=== PATIENT | female | born 1965 | race Caucasian/White ===

== ENCOUNTER 2021-08-15 10:46 | Outpatient (CLI) | payer OTHER | END 2021-08-15 10:51 | disposition home or self-care (01) | LOC: LAB 10:46 | DX: N95.2 Postmenopausal atrophic vaginitis (principal); R10.2 Pelvic and perineal pain; R93.89 Abnormal findings on diagnostic imaging of other specified body structures; Z01.419 Encounter for gynecological examination (general) (routine) without abnormal findings ==

== ENCOUNTER 2022-09-11 08:34 | Outpatient (CLI) | payer OTHER | END 2022-09-11 08:36 | disposition home or self-care (01) | LOC: MAMO-SONO 08:34 | DX: Z12.31 Encounter for screening mammogram for malignant neoplasm of breast (principal) ==

== ENCOUNTER 2022-09-11 09:49 | Outpatient (CLI) | payer OTHER | END 2022-09-11 09:53 | disposition home or self-care (01) | LOC: LAB 09:49 | DX: D64.9 Anemia, unspecified (principal); I10 Essential (primary) hypertension; E78.5 Hyperlipidemia, unspecified; N39.0 Urinary tract infection, site not specified; R19.5 Other fecal abnormalities; R80.9 Proteinuria, unspecified; E11.69 Type 2 diabetes mellitus with other specified complication; E03.8 Other specified hypothyroidism; E55.9 Vitamin D deficiency, unspecified ==

== ENCOUNTER 2025-05-18 10:31 | Outpatient (CLI) | payer OTHER | END 2025-05-18 10:34 | disposition home or self-care (01) | LOC: MRI 10:31 | DX: M25.551 Pain in right hip (principal); M25.562 Pain in left knee; N64.4 Mastodynia; Z12.31 Encounter for screening mammogram for malignant neoplasm of breast | CPT/HCPCS: 73721 ==

== ENCOUNTER 2025-05-20 11:17 | Outpatient (CLI) | payer OTHER ==
[2025-05-20 11:54] LABS: BASO % 1.1 % (0.1-1.2); EOS # 0.13 (0.04-0.54); EOS % 1.5 % (0.7-7.0); LYMPH # 3.00 (1.18-3.74); LYMPH % 35.5 % (19.3-53.1); MEAN PLATELET VOLUME 11.70 fl (9.4-12.4); MONO # 0.77 (0.24-0.82); MONO % 9.1 % (4.7-12.5); NEUT # 4.46 (1.56-6.13); NEUT % 52.7 % (34.0-71.1); RED CELL DISTRIBUTION WIDTH 13.5 % (11.6-14.4)
[2025-05-20 12:29] LABS: URINE APPEARANCE Clear; URINE BILIRRUBIN Negative (NEGATIVE); URINE BLOOD Negative; URINE COLOR Yellow; URINE GLUCOSE Negative (NEGATIVE); URINE KETONE Negative (NEGATIVE); URINE LEUKOCYTE Negative; URINE NITRATE Negative; URINE PROTEIN Negative (NEGATIVE); URINE UROBILINOGEN 0.2 E.U./dl
[2025-05-20 12:48] LABS: URINE BACTERIA 10.7 uL (0.0-1933); URINE EPITHELIAL CELLS 3.8 uL (0.0-38.8); URINE RBC 9.3 uL (0.0-20.8); URINE WBC 6.6 uL (0.0-23.2)
[2025-05-20 13:05] LABS: URINE CAST 0.00 uL (0.0-1.40)
[2025-05-20 13:14] LABS: ALT/SGPT 22.0 U/L (12-78); AST/SGOT 14.0 U/L (15-37); BILIRUBIN TOTAL 0.59 mg/dL (0.3-1.2); BUN CREA RATIO 24.0 (7.0-25.0); CHOL HDL RATIO 3.1 (0-5.0); CREATININE SERUM 0.68 mg/dL (0.55-1.02); GFR 89.18; GLOBULINA 3.8 G/DL (2.4-3.5); GLUCOSE FASTING 95.0 mg/dL (65-100); HDL 60.0 mg/dl (40-60); LDL 101.0 mg/dl (0-130); OSMOLALITY SERUM 284.0 MOSM/KG (275-295); TSH 0.949 uIU/mL (0.358-3.74); VLDL 22.0 (0-39)
== END 2025-05-20 11:19 | disposition home or self-care (01) ==
LOC: LAB 11:17
DX: E11.9 Type 2 diabetes mellitus without complications (principal); D64.9 Anemia, unspecified; E03.9 Hypothyroidism, unspecified; Z12.11 Encounter for screening for malignant neoplasm of colon; N39.0 Urinary tract infection, site not specified; E55.9 Vitamin D deficiency, unspecified